=== PATIENT | male | born 1965 | race Hispanic/Latino ===

== ENCOUNTER 2024-01-17 09:28 | Emergency (ER) | payer OTHER ==
[2024-01-17 10:21] LABS: Absolute Eosinophils 0.1 K/uL (0-0.5); Absolute Lymphocytes (CBC) 1.8 K/uL (0.7-4.9); Absolute Monocytes 0.7 K/uL (0.1-1.3); Absolute Neutrophil 6.4 K/uL (1.8-8.0); Basophils % 0.5 % (0-1.3); Eosinophils % 1.5 % (0-4.4); Hematocrit 22.4 % (39.6-49.0); Hemoglobin 7.6 g/dL (13.6-17.9); Lymphocytes % 19.4 % (15.3-44.8); MCH 30.3 pg (27.0-35.0); MCHC 34.1 g/dL (32.0-36.0); MCV 88.8 fL (80-100); MPV 6.2 fL (7.6-11.3); Monocytes % 7.8 % (3.3-12.3); Neutrophils % 70.8 % (41.7-73.7); Nucleated Red Blood Cells % 0.1 % (0-0); Platelets 339 thou/uL (152-406); RBC Red Blood Cell Count 2.53 M/uL (4.33-5.43); Red Cell Distribution Width 16.7 % (12.1-15.2)
[2024-01-17] MEDS ORDERED: HYDROMORPHONE HCL 0.5 MG/0.5 ML INJ ONE (10:27)
[2024-01-17 10:29] LABS: PT Prothrombin Time 12.4 SECONDS (9.5-12.5); PTT, Activated Partial Thromb 27.6 SECONDS (24.3-36.9); Protime INR 1.13
[2024-01-17 10:33] LABS: Anion Gap 12.5 mEq/L (5.0-15.0); Potassium 3.5 mEq/L (3.5-5.1)
--- NOTE | 2024-01-17 10:56 | RAD REPORT ---
EXAM DESCRIPTION: CT - Stone Protocol - 01/17/2024 9:53 am CLINICAL HISTORY: right nephrostomy tube displacement COMPARISON: No comparisons TECHNIQUE: Thin cut axial CT imaging of the abdomen and pelvis was performed without IV contrast. Mu ltiplanar reformats were generated and reviewed. All CT scans are performed using dose optimization technique as appropriate and may include automated exposure control or mA/KV adjustment according to patient size. FINDINGS: No suspicious findings in the lung bases. The liver, spleen, adrenal glands, and pancreas show no suspicious findings. Gallbladder and biliary tree are also without suspicious finding. Atrophic changes of both kidneys. Numerous exophytic cortical cystic lesions, without suspicious pare nchymal findings within limits of noncontrast technique. Right nephrostomy tube is now exterior to th e body, present along the right posterior flank scan. The left nephrostomy tube is satisfactory in po sition. No evidence of radiopaque calculi. Mild prominence of the right renal pelvis. No hydroureter. . No dilated bowel loops or bowel wall thickening. No free air, free fluid or inflammatory stranding. N o hernia, mass or bulky lymphadenopathy. The urinary bladder is decompressed which limits evaluation, with suspected wall thickening versus hyperdense content within the bladder. Suprapubic catheter in place. Soft tissue thickening or scarring present in the presacral space. Resort appearance with unde rlying sclerosis of the lower sacral segments, with an overlying decubitus ulcer. . Compression deformities along L1 inferior endplate and L2 superior endplate, with partial ankylosis a nd osseous remodeling of the endplates. IMPRESSION: Right nephrostomy tube now lies exterior to the body. The left nephrostomy tube is in sa tisfactory position. Mild prominence of the right renal pelvis may reflect mild hydronephrosis. Decompressed urinary bladder, with wall thickening versus hyperdense material within, not well evalua yanet. Numerous renal hypoattenuating exophytic lesions, may represent cysts, also not well evaluated on non contrast CT. Other incidental findings as above, including a sacral decubitus ulcer.
[2024-01-17] MEDS ORDERED: NA CHLORIDE 0.9% 1,000 ML ONE (11:29)
[2024-01-17 14:29] VITALS: O2SAT 98
[2024-01-17 14:53] VITALS: BP 114/79; TEMP 97.5
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
--- NOTE | 2024-01-17 18:00 | ER ---
Nurse's Notes [facility] Name: Scott Kelley Age: 58 yrs Sex: Male : 1965 Arrival Date: 01/17/2024 Time: 09:28 Bed 3 Private MD: Diagnosis: Displacement of nephrostomy catheter, initial encounter;Acute kidney failure, unspecified Presentation: 01/16 09:30 Chief complaint: EMS states: Pt from [facility], has bilateral nephrostomy tubes ph and suprapubic catheter, at some point in the last few days his nephrostomy tube came out. Coronavirus screen: Vaccine status: Patient reports receiving the 2nd dose of the covid vaccine. Ebola Screen: No symptoms or risks identified at this time. Initial Sepsis Screen: Does the patient meet any 2 criteria? No. Patient's initial sepsis screen is negative. Does the patient have a suspected source of infection? No. Patient's initial sepsis screen is negative. Risk Assessment: Do you want to hurt yourself or someone else? Patient reports no desire to harm self or others. Onset of symptoms was January 17, 2024. 09:30 Method Of Arrival: EMS: [facility] ph 09:30 Acuity: JEFFERY 3 ph Historical: - Allergies: 09:36 ACETAMINOPHEN; ph 09:36 Qftxvfgw-Dkzjxkfrcv-Ikfvbdzoi; ph 09:36 Vancomycin; ph - Immunization history:: Adult Immunizations up to date. - Infectious Disease History:: Denies. - Family history:: not pertinent. - Social history:: Smoking status: Patient/guardian denies using tobacco. - Hospitalizations: : No recent hospitalization is reported. Screenin:44 [facility] ED Fall Risk Assessment (Adult) History of falling in the last 3 months, hb including since admission No falls in past 3 months (0 pts) Confusion or Disorientation No (0 pts) Intoxicated or Sedated No (0 pts) Impaired Gait Yes (1 pt) Mobility Assist Device Used Yes (1 pt) Altered Elimination Yes (1 pt) Score/Fall Risk Level 3 or more points = High Risk Oriented to surroundings, Maintained a safe environment, Educated pt \T\ family on fall prevention, incl call for assistance when getting out of bed, Assessed \T\ reinforced patient's understanding of fall precautions, Hourly rounding (assess needs \T\ fall precautionary measures) done. Abuse screen: Denies threats or abuse. Denies injuries from another. Nutritional screening: No deficits noted. Tuberculosis screening: No symptoms or risk factors identified. Assessment: 10:15 General: Appears in no apparent distress. Behavior is calm, cooperative. Pain: Pain hb currently is 8 out of 10 on a pain scale. Neuro: Level of Consciousness is awake, alert, obeys commands, Oriented to person, place, time, situation. Cardiovascular: Patient's skin is warm and dry. Respiratory: Respiratory effort is even, unlabored, Respiratory pattern is regular, symmetrical. GI: No signs and/or symptoms were reported involving the gastrointestinal system. Colostomy site Ostomy appliance is intact. : urostomy tube in place with urinary collection bag by gravity, left nephrostomy tube in place with urinary collection bag to gravity, right nephrostomy tube not in place. 10:15 EENT: No signs and/or symptoms were reported regarding the EENT system. Derm: Skin is hb pink, warm \T\ dry. Musculoskeletal: bilateral aka, c/o chronic back pain 03/10, takes Dilaudid PO at home. 11:33 Reassessment: Patient appears in no apparent distress at this time. Patient and/or ph family updated on plan of care and expected duration. Pain level reassessed. Patient is alert, oriented x 3, equal unlabored respirations, skin warm/dry/pink. 13:21 Reassessment: Patient appears in no apparent distress at this time. Patient and/or ph family updated on plan of care and expected duration. Pain level reassessed. Patient is alert, oriented x 3, equal unlabored respirations, skin warm/dry/pink. report called to Hali NAYLOR at [facility], awaiting EMS for transport. 14:00 Reassessment: Patient appears in no apparent distress at this time. Patient and/or ph family updated on plan of care and expected duration. Pain level reassessed. Patient is alert, oriented x 3, equal unlabored respirations, skin warm/dry/pink. 14:00 Reassessment: [facility] at bedside, report given to EMT-P. ph Vital Signs: 09:30 BP 134 / 81; Pulse 80; Resp 18; Pulse Ox 98% on R/A; Weight 57.15 kg; ph 10:15 BP 122 / 81; Pulse 64; Resp 16; Pulse Ox 97% ; Pain 8/10; hb 12:34 BP 125 / 79; Pulse 71; Resp 18; Temp 97.5; Pulse Ox 97% on R/A; ph 13:21 BP 114 / 79; Pulse 79; Resp 18; Pulse Ox 98% on R/A; ph 10:15 Pain Scale: Adult hb ED Course: 09:29 Patient arrived in ED. ph 09:35 Triage completed. ph 09:37 Arm band placed on Patient placed in an exam room, on a stretcher. ph 09:38 Tyree Bruce MD is Attending Physician. rn 09:54 CT Stone Protocol In Process Unspecified. EDMS 10:14 Inserted saline lock: 20 gauge in right antecubital area, using aseptic technique. hb Blood collected. 10:40 Juliette Comer, CYNDY is Primary Nurse. hb 10:41 Pulse ox on. NIBP on. hb 10:41 Initial lab(s) drawn, by me, sent to lab. hb 10:44 Patient has correct armband on for positive identification. Placed in gown. Bed in low hb position. Call light in reach. Provided Education on: tests, result times, use of call light. 11:26 initiated transfer to [facility]. bd 13:22 No provider procedures requiring assistance completed. Patient transferred, IV remains ph in place. Administered Medications: 10:31 Drug: HYDROmorphone IVP 0.5 mg IVP once Route: IVP; Site: right antecubital; hb 11:33 Follow up: Response: No adverse reaction; Pain is decreased; RASS: Alert and Calm (0) ph 11:33 Drug: NS 0.9% IV 1000 ml IV at 1000 ml once Route: IV; Rate: 1000 ml; Site: right ph antecubital; 13:22 Follow up: Response: No adverse reaction; IV Status: Completed infusion; IV Intake: ph 1000ml Medication: 10:44 VIS not applicable for this client. hb Intake: 13:22 IV: 1000ml; Total: 1000ml. ph Outcome: 11:27 ER care complete, transfer ordered by . rn 14:04 Transferred [facility]. to [facility], Transfer form completed. ph X-rays sent w/ patient. 14:04 Condition: stable 14:04 Instructed on the need for transfer, 14:05 Patient left the ED. ph Signatures: Dispatcher [employer] EDMS Lisa rm Tyree Douglass MD MD rn Hall, Patricia, RN RN Juliette Pollard RN RN hb Corrections: (The following items were deleted from the chart) 10:41 10:14 Inserted saline lock: 20 gauge in right antecubital area, using aseptic hb technique. Blood collected. hb 10:44 10:15 GI: No signs and/or symptoms were reported involving the gastrointestinal system. hb hb 10:44 10:15 : urostomy tube in place with urinary collection bag by gravity, left hb nephrostomy tube in place with urinary collection bag to gravity, right nephrostomy tube not in place. hb
== END 2024-01-17 14:05 | disposition short-term general hospital (02) ==
LOC: ER 09:28
DX: T83.022A Displacement of nephrostomy catheter, initial encounter (principal); N17.9 Acute kidney failure, unspecified
CPT/HCPCS: 96361; 85025; 80048; 36415; 85610; 85730; 76377; 74176; 96374; 99285; J1170; J7030

== ENCOUNTER 2024-01-22 19:01 | Emergency (ER) | payer OTHER ==
[2024-01-22] MEDS ORDERED: FENTANYL CITR 100 MCG/2 ML ONE (23:26)
[2024-01-22 23:30] LABS: Anion Gap 11.1 mEq/L (5.0-15.0); Potassium 4.1 mEq/L (3.5-5.1)
[2024-01-22 23:37] LABS: Absolute Eosinophils 0.2 K/uL (0-0.5); Absolute Lymphocytes (CBC) 2.1 K/uL (0.7-4.9); Absolute Monocytes 1.3 K/uL (0.1-1.3); Absolute Neutrophil 6.8 K/uL (1.8-8.0); Basophils % 0.3 % (0-1.3); Eosinophils % 1.5 % (0-4.4); Hematocrit 23.4 % (39.6-49.0); Hemoglobin 7.9 g/dL (13.6-17.9); Lymphocytes % 20.4 % (15.3-44.8); MCH 30.2 pg (27.0-35.0); MCHC 33.9 g/dL (32.0-36.0); MCV 89.1 fL (80-100); MPV 6.3 fL (7.6-11.3); Monocytes % 12.5 % (3.3-12.3); Neutrophils % 65.3 % (41.7-73.7); Platelets 386 thou/uL (152-406); RBC Red Blood Cell Count 2.62 M/uL (4.33-5.43); Red Cell Distribution Width 16.4 % (12.1-15.2)
--- NOTE | 2024-01-23 08:55 | EDPHYS ---
Physician Documentation [facility] [place] [place] [facility] Name: Scott Kelley Age: 59 yrs Sex: Male : 1965 Arrival Date: 01/22/2024 Time: 19:01 Bed Treatment Private MD: ED Physician Goran Monterroso HPI: 01/21 22:00 This 59 yrs old Male presents to ER via EMS with complaints of Wound Recheck. cp 22:00 Patient is a 59-year-old male with past medical history significant for paraplegia, cp hypertension who presents to the emergency department with complaints of increased pain to chronic decubitus pressure ulcer. Patient admits that he is in a rehab facility and that they have decreased his pain medications and so he is having increased pain today. Patient denies any fevers and is upset because the provider performing the wound management at the rehab center use honey on his wound at the last dressing change. 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 - Infectious Disease History:: Denies. - Social history:: Smoking status: Patient denies any tobacco usage or history of. ROS: 22:05 Constitutional: hx per hpi cp 22:05 Constitutional: Negative for body aches, chills, fever, cp 22:05 Cardiovascular: Negative for chest pain, 22:05 Respiratory: Negative for cough, shortness of breath, wheezing, 22:05 Abdomen/GI: Negative for vomiting, diarrhea, constipation, 22:05 Skin: Positive for of the buttocks, chronic wound, 22:05 Neuro: Negative for altered mental status, weakness, 22:05 All other systems are negative, Exam: 22:10 Constitutional: The patient appears in no acute distress, alert, awake, cp non-diaphoretic, non-toxic, well developed, well nourished, 22:10 Head/Face: Normocephalic, atraumatic. cp 22:10 Eyes: Periorbital structures: appear normal, Conjunctiva: normal, no exudate, no injection, Sclera: no appreciated abnormality, Lids and lashes: appear normal, bilaterally, 22:10 ENT: External ear(s): are unremarkable, Nose: is normal, Mouth: Lips: moist, Oral mucosa: moist, Posterior pharynx: Airway: no evidence of obstruction, patent, 22:10 Chest/axilla: Inspection: normal, 22:10 Cardiovascular: Rate: normal, Rhythm: regular, 22:10 Respiratory: the patient does not display signs of respiratory distress, Respirations: normal, no use of accessory muscles, no retractions, labored breathing, is not present, Breath sounds: are clear throughout, no decreased breath sounds, no stridor, no wheezing, 22:10 Abdomen/GI: Palpation: abdomen is soft and non-tender, in all quadrants, 22:10 Back: left nephrostomy tube in place, 22:10 Musculoskeletal/extremity: bilateral above the knee amputations. 22:10 Skin: large pressure ulcer noted to coccyx and buttocks with minimal drainage, mild erythema noted. 22:10 Neuro: Orientation: to person, place \T\ time. Mentation: is normal, Vital Signs: 11:00 BP 114 / 70; Pulse 93; Resp 18; Pulse Ox 99% on R/A; al5 21:19 BP 101 / 57; Pulse 91; Resp 18; Temp 100(O); Pulse Ox 98% on R/A; Weight 57.15 kg; cm10 Height 5 ft. 9 in. ; Pain 05/10; 22:30 BP 113 / 73; Pulse 98; Resp 18; Temp 99.6; Pulse Ox 100% on R/A; al5 01/22 05:36 BP 110 / 68; Pulse 95; Resp 18; Pulse Ox 100% ; vc1 01/21 21:19 Body Mass Index 18.61 (57.15 kg, 175.26 cm) cm10 21:19 Pain Scale: Adult cm10 MDM: 01/21 19:33 Patient medically screened. cp 23:45 Differential diagnosis: sepsis, electrolyte abnormality, acute on chronic kidney cp failure. 01/22 00:20 Data reviewed: vital signs, nurses notes, lab test result(s). ED course: VSS. Discussed cp results of today's testing. Unknown creatinine baseline. Discussed admission for nephrology consult but patient declines and requests discharge back to wound care and rehab. 00:25 I considered the following discharge prescriptions or medication management in the cp emergency department Medications were administered in the Emergency Department. See SEP. 00:25 Care significantly affected by the following chronic conditions: Hypertension, Chronic cp Kidney Disease. Counseling: I had a detailed discussion with the patient and/or guardian regarding the historical points, exam findings, and any diagnostic results supporting the discharge/admit diagnosis, lab results, the need for outpatient follow up, for definitive care, wound care, nephrology, to return to the emergency department if symptoms worsen or persist or if there are any questions or concerns that arise at home. 01/21 23:11 Order name: Basic Metabolic Panel EDMS 01/21 23:55 Interpretation: Normal except: NA 135; CL 108; CO2 20; BUN 73; CRE 4.82; GFR 13; CA 7.2.cp 01/21 23:11 Order name: Lactate w/ 2H reflex if indic. EDMS 01/21 23:11 Order name: CBC with Automated Diff EDMS 01/21 23:55 Interpretation: Normal except: RBC 2.62; HGB 7.9; HCT 23.4; RDW 16.4; MPV 6.3; MN% 12.5.cp 01/21 21:53 Order name: IV; Complete Time: 23:06 cp 01/22 00:23 Order name: Wound dressing cp Administered Medications: 01/21 23:32 Drug: fentaNYL (PF) IVP 25 mcg IVP once Route: IVP; Site: left forearm; al5 01/22 00:06 Follow up: Response: No adverse reaction cm10 Disposition Summary: 01/23/24 00:26 Discharge Ordered Notes: Location: Home cp Problem: an ongoing problem cp Symptoms: have improved cp Condition: Stable cp Diagnosis - Pain, unspecified cp - Unspecified kidney failure cp - Pressure ulcer of contiguous site of back, buttock and hip, unstageable cp Followup: cp - With: Private Physician - When: 1 - 2 days - Reason: Recheck today's complaints Discharge Instructions: - Discharge Summary Sheet cp - Chronic Kidney Disease, Adult cp Forms: - Medication Reconciliation Form cp - Antibiotic Education cp - Prescription Opioid Use cp - Patient Portal Instructions cp - Leadership Thank You Letter cp Signatures: Dispatcher [employer] EDFederico Hyatt PA PA cp Martinez, Clarissa RN RN cm10 Susi Beard RN RN al5
--- NOTE | 2024-01-23 08:55 | ER ---
Nurse's Notes [facility] Name: Scott Kelley Age: 59 yrs Sex: Male : 1965 Arrival Date: 01/22/2024 Time: 19:01 Bed Treatment Private MD: Diagnosis: Pain, unspecified;Unspecified kidney failure;Pressure ulcer of contiguous site of back, buttock and hip, unstageable Presentation: 01/21 21:19 Chief complaint: Patient states: Brought in via [facility] for wound check. Pt cm10 states that he has a pressure ulcer to his sacrum and is having pain. Pt from [facility]. Coronavirus screen: Client denies travel out of the [place] in the last 14 days. At this time, the client does not indicate any symptoms associated with coronavirus-19. Ebola Screen: Patient denies travel to an Ebola-affected area in the 21 days before illness onset. No symptoms or risks identified at this time. Initial Sepsis Screen: Does the patient meet any 2 criteria? HR > 90 bpm. Does the patient have a suspected source of infection? No. Patient's initial sepsis screen is negative. Risk Assessment: Do you want to hurt yourself or someone else? Patient reports no desire to harm self or others. Onset of symptoms was January 22, 2024. 21:19 Method Of Arrival: EMS: [facility] cm10 21:19 Acuity: JEFFERY 3 cm10 Triage Assessment: 21:28 General: Appears in no apparent distress. uncomfortable, Behavior is calm, cooperative. cm10 Pain: Complains of pain in buttocks. Neuro: No deficits noted. Level of Consciousness is awake, alert, obeys commands, Oriented to person, place, time, situation, Appropriate for age. Respiratory: No deficits noted. Airway is patent Respiratory effort is even, unlabored, Respiratory pattern is regular, symmetrical. Derm: Decubitus located on sacrum Right buttocks approximately > 20 cm is stage IV. 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 - Infectious Disease History:: Denies. - Social history:: Smoking status: Patient denies any tobacco usage or history of. Screenin:34 [facility] ED Fall Risk Assessment (Adult) History of falling in the last 3 months, cm10 including since admission No falls in past 3 months (0 pts) Confusion or Disorientation No (0 pts) Intoxicated or Sedated No (0 pts) Impaired Gait Yes (1 pt) Mobility Assist Device Used Yes (1 pt) Altered Elimination Yes (1 pt) Score/Fall Risk Level 3 or more points = High Risk Oriented to surroundings, Maintained a safe environment, Hourly rounding (assess needs \T\ fall precautionary measures) done. Abuse screen: Denies threats or abuse. Denies injuries from another. Nutritional screening: No deficits noted. Tuberculosis screening: No symptoms or risk factors identified. Assessment: 23:06 General: Appears in no apparent distress. Behavior is calm, cooperative. Pain: al5 Complains of pain in buttocks Pain currently is 10 out of 10 on a pain scale. Is continuous. Neuro: No deficits noted. Level of Consciousness is awake, alert, obeys commands, Oriented to person, place, time, situation, Gait is bilateral aka. Speech is normal, Facial symmetry appears normal. Cardiovascular: No deficits noted. Patient's skin is warm and dry. Respiratory: No deficits noted. Airway is patent Trachea midline Respiratory effort is even, unlabored, Respiratory pattern is regular, symmetrical. Derm: Skin stage 4 pressure ulcers sacral area prior to arrival. 01/22 00:03 Reassessment: No changes from previously documented assessment. al5 03:00 General: [facility] at bedside, pt refuses to go back to [facility]. vc1 Instructed patient he is discharged and will have to go to the Lobby if he decides not to go back to the sn[facility]. Pt stated he is not going back to the snf. . 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 Pt decided he will vc1 return to [facility]. . 05:35 Reassessment: Patient appears in no apparent distress at this time. No changes from vc1 previously documented assessment. Vital Signs: 01/21 11:00 BP 114 / 70; Pulse 93; Resp 18; Pulse Ox 99% on R/A; al5 21:19 BP 101 / 57; Pulse 91; Resp 18; Temp 100(O); Pulse Ox 98% on R/A; Weight 57.15 kg; cm10 Height 5 ft. 9 in. ; Pain 10/; 22:30 BP 113 / 73; Pulse 98; Resp 18; Temp 99.6; Pulse Ox 100% on R/A; al5 01/22 05:36 BP 110 / 68; Pulse 95; Resp 18; Pulse Ox 100% ; vc1 01/21 21:19 Body Mass Index 18.61 (57.15 kg, 175.26 cm) cm10 21:19 Pain Scale: Adult cm10 ED Course: 01/21 19:07 Patient arrived in ED. im 19:33 Federico Jay PA is PHCP. cp 19:33 Goran Monterroso MD is Attending Physician. cp 21:20 Triage completed. cm10 21:29 Arm band placed on Patient placed in an exam room, on a stretcher, on pulse oximetry. cm10 21:34 Patient has correct armband on for positive identification. Bed in low position. Call cm10 light in reach. Side rails up X2. Provided Education on: ER process and procedures. 21:57 Susi Beard RN is Primary Nurse. al5 23:06 Inserted saline lock: 22 gauge in left forearm, using aseptic technique. al5 23:25 Basic Metabolic Panel Sent. al5 23:25 Lactate w/ 2H reflex if indic. Sent. al5 23:25 CBC with Automated Diff Sent. al5 01/22 00:09 Report given to CYNDY Livingston. al5 00:47 1-2 hour [facility]. km 05:36 No provider procedures requiring assistance completed. IV discontinued, intact, vc1 bleeding controlled, No redness/swelling at site. Pressure dressing applied. Administered Medications: 01/21 23:32 Drug: fentaNYL (PF) IVP 25 mcg IVP once Route: IVP; Site: left forearm; al5 01/22 00:06 Follow up: Response: No adverse reaction cm10 Medication: 05:35 VIS not applicable for this client. vc1 Output: 05:35 Urine: 2000ml ([place]); Total: 2000ml. vc1 Outcome: 00:26 Discharge ordered by MD. florian 05:36 Discharged to home ambulatory, vc1 05:36 Condition: good 05:36 Discharge instructions given to patient, Instructed on discharge instructions, follow up and referral plans. medication usage, Demonstrated understanding of instructions, follow-up care, 05:37 Patient left the ED. vc1 Signatures: Federico Jay PA PA cp Calcote, Vanessa, RN RN vc1 Charisse Sierra Clarissa, RN RN cm10 Sharla Dean Amanda, RN RN al5
[2024-01-23 16:18] VITALS: BP 110/68; TEMP 99.6; O2SAT 100
== END 2024-01-23 05:37 | disposition home or self-care (01) ==
LOC: ER 19:01
DX: L89.45 Pressure ulcer of contiguous site of back, buttock and hip, unstageable (principal); I12.0 Hypertensive chronic kidney disease with stage 5 chronic kidney disease or end stage renal disease; N18.5 Chronic kidney disease, stage 5; Z99.2 Dependence on renal dialysis; Z89.612 Acquired absence of left leg above knee; Z89.611 Acquired absence of right leg above knee
CPT/HCPCS: 85025; 80048; 36415; 83605; J3010